=== PATIENT | male | born 1990 | race Caucasian/White ===

== ENCOUNTER → 2017-06-18 | Emergency (ER) | payer MEDICAID, OTHER ==
[2017-06-18] MEDS: LORAZEPAM 1 MG TAB PO (13:42)
== END | disposition home or self-care (01) ==
LOC: E/R 10:26
DX: F41.9 Anxiety disorder, unspecified (principal); F17.210 Nicotine dependence, cigarettes, uncomplicated; R07.9 Chest pain, unspecified
CPT/HCPCS: 71045; 93005; 99284-25

== ENCOUNTER 2017-07-13 11:10 | Emergency (ER) | payer OTHER, MEDICAID ==
[2017-07-13] MEDS: ACETAMINOPHEN 500 MG TAB PO (13:55)
[2017-07-13] MEDS: clonAZEPAM 0.5 MG TAB PO (13:56)
== END 2017-07-13 14:50 | disposition home or self-care (01) ==
LOC: FTE 11:10
DX: F41.9 Anxiety disorder, unspecified (principal); F17.210 Nicotine dependence, cigarettes, uncomplicated; Z76.5 Malingerer [conscious simulation]
CPT/HCPCS: 99283; Z7502

== ENCOUNTER 2017-08-25 12:38 | Emergency (ER) | payer OTHER ==
[2017-08-25] MEDS: IBUPROFEN 600 MG TAB PO (15:31)
== END 2017-08-25 16:14 | disposition home or self-care (01) ==
LOC: FTE 12:38
DX: M54.5 Low back pain (principal); Z87.891 Personal history of nicotine dependence
CPT/HCPCS: 99283; Z7502

== ENCOUNTER 2017-09-18 14:50 | Emergency (ER) | payer OTHER | END 2017-09-18 15:45 | disposition home or self-care (01) | LOC: FTE 14:50 | DX: F41.9 Anxiety disorder, unspecified (principal); M54.9 Dorsalgia, unspecified; F17.210 Nicotine dependence, cigarettes, uncomplicated | CPT/HCPCS: 99284; Z7502 ==

== ENCOUNTER 2017-10-23 20:31 | Emergency (ER) | payer OTHER ==
[2017-10-23] MEDS: KETOROLAC 60 MG INJ IM (22:16)
== END 2017-10-23 22:37 | disposition home or self-care (01) ==
LOC: FTE 20:31
DX: K08.89 Other specified disorders of teeth and supporting structures (principal); I10 Essential (primary) hypertension
CPT/HCPCS: 96372; 99284-25

== ENCOUNTER 2017-12-04 18:04 | Emergency (ER) | payer OTHER ==
[2017-12-04] MEDS: ALPRAZOLAM 0.25 MG TAB PO (20:07)
== END 2017-12-04 20:15 | disposition home or self-care (01) ==
LOC: FTE 18:04
DX: F41.9 Anxiety disorder, unspecified (principal); I10 Essential (primary) hypertension
CPT/HCPCS: 99283; Z7502

== ENCOUNTER 2018-01-31 18:17 | Emergency (ER) | payer OTHER ==
[2018-01-31] MEDS: OXYCODONE/ACETAMINOPHEN (10/325) TAB PO (20:49)
[2018-01-31] MEDS: clonAZEPAM 0.5 MG TAB PO (20:49)
== END 2018-01-31 20:58 | disposition home or self-care (01) ==
LOC: FTE 18:17
DX: Z76.0 Encounter for issue of repeat prescription (principal); I10 Essential (primary) hypertension
CPT/HCPCS: 99283; Z7502

== ENCOUNTER 2018-02-16 17:40 | Emergency (ER) | payer OTHER ==
[2018-02-16] MEDS: OXYCODONE/ACETAMINOPHEN (5/325) TAB PO (19:02)
== END 2018-02-16 19:36 | disposition home or self-care (01) ==
LOC: FTE 17:40
DX: M54.9 Dorsalgia, unspecified (principal); I10 Essential (primary) hypertension; G89.29 Other chronic pain; Z76.5 Malingerer [conscious simulation]
CPT/HCPCS: 99283; Z7502

== ENCOUNTER 2018-03-15 16:10 | Emergency (ER) | payer OTHER | END 2018-03-15 17:53 | disposition home or self-care (01) | LOC: FTE 16:10 | DX: Z76.0 Encounter for issue of repeat prescription (principal); I10 Essential (primary) hypertension; G89.29 Other chronic pain; Z72.89 Other problems related to lifestyle | CPT/HCPCS: 99281; Z7502 ==

== ENCOUNTER 2018-04-30 15:50 | Emergency (ER) | payer OTHER ==
[2018-04-30] MEDS: HYDROCODONE/APAP (10/325) TAB PO (18:22)
== END 2018-04-30 18:26 | disposition home or self-care (01) ==
LOC: FTE 15:50
DX: M54.9 Dorsalgia, unspecified (principal); I10 Essential (primary) hypertension
CPT/HCPCS: 99283; Z7502

== ENCOUNTER 2018-05-18 16:42 | Emergency (ER) | payer OTHER | END 2018-05-18 18:48 | disposition home or self-care (01) | LOC: FTE 16:42 | DX: F41.9 Anxiety disorder, unspecified (principal); I10 Essential (primary) hypertension | CPT/HCPCS: 99281; Z7502 ==

== ENCOUNTER 2018-06-15 16:34 | Emergency (ER) | payer MEDICAID, OTHER | END 2018-06-15 17:16 | disposition home or self-care (01) | LOC: E/R 16:34 | DX: F41.9 Anxiety disorder, unspecified (principal); I10 Essential (primary) hypertension | CPT/HCPCS: 99282; Z7502 ==

== ENCOUNTER 2018-08-04 17:12 | Emergency (ER) | payer MEDICAID | END 2018-08-04 18:32 | disposition home or self-care (01) | LOC: E/R 17:12 | DX: G89.4 Chronic pain syndrome (principal); I10 Essential (primary) hypertension; Z72.89 Other problems related to lifestyle | CPT/HCPCS: 99282; Z7502 ==

== ENCOUNTER 2018-08-09 15:52 | Emergency (ER) | payer SELFPAY, OTHER, MEDICAID | END 2018-08-09 17:10 | disposition home or self-care (01) | LOC: FTE 15:52 | DX: G89.29 Other chronic pain (principal); I10 Essential (primary) hypertension; Z72.89 Other problems related to lifestyle | CPT/HCPCS: 99282 ==

== ENCOUNTER 2018-08-29 23:53 | Emergency (ER) | payer SELFPAY, OTHER ==
[2018-08-30] MEDS: KETOROLAC 60 MG INJ IM (01:31)
== END 2018-08-30 01:44 | disposition home or self-care (01) ==
LOC: FTE 23:53
DX: M79.604 Pain in right leg (principal); I10 Essential (primary) hypertension
CPT/HCPCS: 96372; 99284-25

== ENCOUNTER 2018-09-09 14:07 | Emergency (ER) | payer MEDICAID ==
[2018-09-09] MEDS: KETOROLAC 30 MG INJ IM (17:15)
== END 2018-09-09 17:36 | disposition home or self-care (01) ==
LOC: FTE 17:36
DX: M54.5 Low back pain (principal); I10 Essential (primary) hypertension; Z72.89 Other problems related to lifestyle
CPT/HCPCS: 96372; 99284-25

== ENCOUNTER 2018-09-21 15:00 | Emergency (ER) | payer SELFPAY, MEDICAID | END 2018-09-21 17:04 | disposition left against medical advice (07) | LOC: E/R 17:04 | DX: Z53.21 Procedure and treatment not carried out due to patient leaving prior to being seen by health care provider (principal) ==

== ENCOUNTER 2018-10-01 21:27 | Emergency (ER) | payer MEDICAID | END 2018-10-01 22:27 | disposition home or self-care (01) | LOC: E/R 21:27 | DX: F41.1 Generalized anxiety disorder (principal); G89.29 Other chronic pain; I10 Essential (primary) hypertension | CPT/HCPCS: 99282; Z7502 ==

== ENCOUNTER 2018-10-28 14:40 | Emergency (ER) | payer MEDICAID ==
[2018-10-28] MEDS: clonAZEPAM 0.5 MG TAB PO (16:07)
== END 2018-10-28 16:34 | disposition home or self-care (01) ==
LOC: FTE 14:40
DX: I10 Essential (primary) hypertension (principal); F17.210 Nicotine dependence, cigarettes, uncomplicated
CPT/HCPCS: 99281; Z7502